=== PATIENT | female | born 1960 | race Caucasian/White ===

== ENCOUNTER 2017-09-03 08:43 | Outpatient (CLI) | payer OTHER | END 2017-09-03 08:46 | disposition home or self-care (01) | LOC: SONOGRAMA 08:43 → MAMO-SONO 09:15 | DX: E04.1 Nontoxic single thyroid nodule (principal) ==

== ENCOUNTER 2017-09-03 09:32 | Outpatient (CLI) | payer OTHER | END 2017-09-03 10:00 | disposition home or self-care (01) | LOC: NUCLEAR 09:32 | DX: M81.0 Age-related osteoporosis without current pathological fracture (principal) ==

== ENCOUNTER 2017-11-10 14:34 | Outpatient (CLI) | payer OTHER | END 2017-11-10 15:25 | disposition home or self-care (01) | LOC: MAMO-SONO 14:34 | DX: Z12.31 Encounter for screening mammogram for malignant neoplasm of breast (principal); Z87.898 Personal history of other specified conditions; N64.89 Other specified disorders of breast ==

== ENCOUNTER 2018-07-26 10:05 | Outpatient (CLI) | payer OTHER | END 2018-07-26 10:14 | disposition home or self-care (01) | LOC: SONOGRAMA 10:05 | DX: N64.89 Other specified disorders of breast (principal) ==

== ENCOUNTER 2019-01-26 08:28 | Outpatient (CLI) | payer OTHER | END 2019-01-26 08:34 | disposition home or self-care (01) | LOC: MAMO-SONO 08:28 | DX: Z12.31 Encounter for screening mammogram for malignant neoplasm of breast (principal); Z87.898 Personal history of other specified conditions; D24.1 Benign neoplasm of right breast ==

== ENCOUNTER 2019-03-31 10:18 | Outpatient (CLI) | payer OTHER | END 2019-03-31 10:22 | disposition home or self-care (01) | LOC: SONOGRAMA 10:18 → MAMO-SONO 11:15 | DX: E04.1 Nontoxic single thyroid nodule (principal) ==

== ENCOUNTER 2019-09-23 09:27 | Outpatient (CLI) | payer OTHER | END 2019-09-23 09:37 | disposition home or self-care (01) | LOC: NUCLEAR 09:27 | DX: M81.0 Age-related osteoporosis without current pathological fracture (principal) ==

== ENCOUNTER 2020-01-31 10:52 | Outpatient (CLI) | payer OTHER | END 2020-01-31 10:56 | disposition home or self-care (01) | LOC: MAMO-SONO 10:52 | PROVIDERS: ATTEND Specialist | DX: Z12.31 Encounter for screening mammogram for malignant neoplasm of breast (principal); Z87.898 Personal history of other specified conditions; D24.1 Benign neoplasm of right breast ==

== ENCOUNTER 2020-04-25 11:21 | Outpatient (CLI) | payer OTHER | END 2020-04-25 11:29 | disposition home or self-care (01) | LOC: SONOGRAMA 11:21 | PROVIDERS: ATTEND Specialist | DX: N95.1 Menopausal and female climacteric states (principal) ==

== ENCOUNTER 2020-05-22 09:27 | Outpatient (CLI) | payer OTHER | END 2020-05-22 09:32 | disposition home or self-care (01) | LOC: SONOGRAMA 09:27 | PROVIDERS: ATTEND Specialist | DX: D25.1 Intramural leiomyoma of uterus (principal); N85.01 Benign endometrial hyperplasia ==

== ENCOUNTER 2021-01-31 11:37 | Outpatient (CLI) | payer OTHER | END 2021-01-31 11:47 | disposition home or self-care (01) | LOC: MAMO-SONO 11:37 | PROVIDERS: ATTEND Specialist | DX: N84.0 Polyp of corpus uteri (principal); Z12.31 Encounter for screening mammogram for malignant neoplasm of breast; N63.10 Unspecified lump in the right breast, unspecified quadrant ==

== ENCOUNTER 2021-06-28 10:34 | Outpatient (CLI) | payer OTHER | END 2021-06-28 10:41 | disposition home or self-care (01) | LOC: SONOGRAMA 10:34 | PROVIDERS: ATTEND Internal Medicine Endocrinology, Diabetes & Metabolism | DX: E04.2 Nontoxic multinodular goiter (principal) ==

== ENCOUNTER 2021-08-09 07:13 | Outpatient (CLI) | payer OTHER | END 2021-08-09 07:14 | disposition home or self-care (01) | LOC: NUCLEAR 07:13 | PROVIDERS: ATTEND Internal Medicine Cardiovascular Disease | DX: R07.89 Other chest pain (principal); I20.1 Angina pectoris with documented spasm | CPT/HCPCS: 78452; 93017; A9500 ==

== ENCOUNTER 2022-01-27 10:21 | Outpatient (CLI) | payer OTHER | END 2022-01-27 10:23 | disposition home or self-care (01) | LOC: MAMO-SONO 10:21 | PROVIDERS: ATTEND Specialist | DX: D24.1 Benign neoplasm of right breast (principal) ==

== ENCOUNTER 2023-01-28 11:55 | Outpatient (CLI) | payer OTHER | END 2023-01-28 12:05 | disposition home or self-care (01) | LOC: MAMO-SONO 11:55 | PROVIDERS: ATTEND Specialist | DX: D24.1 Benign neoplasm of right breast (principal); D24.2 Benign neoplasm of left breast; Z12.31 Encounter for screening mammogram for malignant neoplasm of breast ==

== ENCOUNTER 2024-09-30 07:13 | Outpatient (CLI) | payer OTHER | END 2024-09-30 07:14 | disposition home or self-care (01) | LOC: NUCLEAR 07:13 | PROVIDERS: ATTEND Internal Medicine | DX: I20.9 Angina pectoris, unspecified (principal) | CPT/HCPCS: 78452; 93017; A9500 ==